=== PATIENT | male | born 1965 | race Caucasian/White ===

== ENCOUNTER 2017-04-24 11:11 | Emergency (ER) | payer MEDICAID ==
[~2017-04-24] VITALS: Ht 180.3 cm; Wt 68.0 kg
--- OUTSIDE RECORDS SUMMARY | 2017-04-24 11:28 | External Medical Summary Rpt | CCD ---
Author Author , NAVEEN HODGE Address Unknown Phone [email or web address] Purpose Continuity of Care Document - through 2016
--- OUTSIDE RECORDS SUMMARY | 2017-04-24 11:28 | External Medical Summary Rpt | CCD ---
Author Author , NAVEEN HODGE Address Unknown Phone [email or web address] Purpose Continuity of Care Document - through 2016
--- OUTSIDE RECORDS SUMMARY | 2017-04-24 11:29 | External Medical Summary Rpt | CCD ---
Author Author [employer] Organization [employer] Address Unknown Phone Unavailable Purpose Continuity of Care Document - through 2016
--- OUTSIDE RECORDS SUMMARY | 2017-04-24 11:29 | External Medical Summary Rpt | CCD ---
Demographics Preferred Language German Marital Status Unknown Jehovah'S Witness Affiliation Unknown Race Unknown Ethnic Group Unknown Author Author , NAVEEN HODGE Address Unknown Phone Immunization No patient found.
--- OUTSIDE RECORDS SUMMARY | 2017-04-24 11:29 | External Medical Summary Rpt | CCD ---
Demographics Preferred Language Bengali Marital Status Unknown Church Affiliation Unknown Race Unknown Ethnic Group Unknown Author Author , NAVEEN HODGE Address Unknown Phone Immunization No patient found.
--- OUTSIDE RECORDS SUMMARY | 2017-04-24 11:30 | External Medical Summary Rpt ---
Author Author NAVEEN Neves, [employer] Organization [employer] Address Unknown Phone Unavailable
[2017-04-24] MEDS ORDERED: ATENOLOL50 M1 PO (11:33)
[2017-04-24] MEDS ORDERED: AMLODIPINE BES10 MG PO (11:33)
--- NOTE | 2017-04-24 11:45 | Urgent Treatment Center Report ---
History of Present Issue Date/Time Seen by Provider 04/24/17 1125 Visit Reason Pt arrived:Walked Presenting Problem:PT C/O RIGHT SHOULDER PAIN THAT GOES DOWN INTO HIS ARM. ADVISES HE LIFTED ON A DRESSER A COUPLE OF DAYS AGO HAS PAIN SINCE THEN. PT ADVISES HIS MUSCLES FEEL TIGHT ALSO Location if Accident: Onset of symptoms date/time:/ or onset unknown for:MEDICAL HX UNKNOWN Have you (or family members/close friends) recently traveled outside the [place]? N If Yes, where/when: Have you had exposure to infectious disease within the past month? TB? Other? Specify: Came from triage for decision c/o pain right shoulder blade x 2 days causing a radiating burning/tingling feeling down right arm into all 4 fingers, not thumb. Helped move a heavy dresser 4 days ago and contributes the pain to that. Currently 03/27. "I was on the way to see my contracts officer when this flared again. i have to nail puller and lay over in my car to get relief so I came here". Describes the pain as "constant nagging toothache type pain" w/ intermittent sharp pain depending on positioning. "I can feel my muscles tight in that area". Trouble sleeping due to pain. Able to get comfortable only laying on right side with right arm abducted at 90 degrees. Pain worse when flat on back or laying on left side. Denies RUE weakness or limitations in ROM. Hx of arthritis. Typically improves with ibuprofen. Hasn't been taking anything for these symptoms. Reports he had run out of ibuprofen "some time ago". Per med rec, ibuprofen prescribed yesterday to Neel in [place]. Pt doesn't know who prescribed it. PCP Ngozi. He doesn't know her last name, whose office she is in or where she is located. States he hasn't seen or contacted anyone regarding this pain. Source patient Exam Limitations no limitations ALLERGIES Coded Allergies: No Known Allergies (04/24/17) Home Medications Reported Medications Amlodipine Besylate (Amlodipine Besylate) 10 MG PO DAILY #30 Atenolol 50 MG PO DAILY #30 History Medical History General CAD? No Angina: No [place]: No Hypertension? Yes Hyperlipidemia? No CHF? No DVT? No PE? No COPD? No Asthma? No Anemia? No GERD? No Gastric ulcers? No GI Bleed? No Hernia? No Thyroid Problems? No Hypothyroidism? No CVA? No Seizures? No Diabetes? No Renal Insuffiency? No UTI? No Stones? No BPH? No GB Disease: No Nephritic Syndrome? No Asplenia? No Hepatitis? No Sickle Cell Disease? No Arthritis? No Migraines? No Cataracts? No Glaucoma? No MRSA? No HIV? No TB? No Anxiety? No Depression? No Cancer? No Site: N More? No Immunization HX DT/Tetanus Unknown Surgical Hx Previous Surgery?N Social History Smoking Hx Smoker: Current Every Day Smoker Tobacco: Yes Type Cigarettes Packs/day 1 1/2 - 2 Packs Alcohol Alcohol: No Review of Systems All Other Systems Reviewed and Negative (as appropriate for CC) Musculoskeletal see HPI, denies joint pain, denies joint swelling, denies muscle stiffness, denies neck pain Skin denies change in color, denies lesions, denies lumps, denies rash Psychiatric/Neurological see HPI, denies headache Physical Exam Vital Signs Vital Signs Date Time Temp Pulse Resp B/P Pulse O2 O2 Flow FiO2 Ox Delivery Rate 04/24 1209 98.1 56 18 124/95 98 04/24 1142 18 04/24 1132 98.1 56 16 124/95 98 04/24 1115 98.1 56 16 124/95 98 General Appearance normal appearance, no apparent distress Neck normal inspection, non-tender, full range of motion (but pain right trap w/ flexion) Respiratory Status Yes: trachea midline, chest symmetrical, non tender chest. No: respiratory distress, use of accessory muscles, pain on inspiration, pain on expiration, productive cough, non productive cough. Lung Sounds anterior: lungs clear. posterior: lungs clear. bilateral: lungs clear. Cardiovascular regular rate/rhythm, no peripheral edema, no murmur Peripheral Pulses Pulses normal Yes (radial) Back normal inspection, no vertebral tenderness, localized TTP center right trapezius Extremities non-tender (from rt shoulder to fingers), normal range of motion (rt shoulder, elbow, wrist), normal inspection (right upper ext) Strength 5 Upper Ext (L), 5 Upper Ext (R) Neurologic alert, no motor/sensory deficits, oriented x 3 Skin intact, normal color, warm/dry Lymphatic no adenopathy Medical Decision Making LABS/Meds/Orders Pt receiving controlled substance in ED? No Results/Orders Current Medication Orders Sig/Lan Start time Last Medication Dose Route Stop Time Status Admin Ketorolac 60 MG ONCE ONE 04/24 1145 DC 04/24 Tromethamine IM 04/24 1146 1142 Ketorolac 0 .STK-MED ONE 04/24 1139 DC Tromethamine .ROUTE Progress [facility] Progress Notes 1 Date 04/24/17 Comment [facility] report ibuprofen called in yesterday by Linwood Jones NP. Called Linwood's primary care office. Pt hasn't been seen there since 2014 and at that time, by Ting MACIEL. Never seen by Linwood. no record of any interaction with pt there in that office but front window cashier staff advises Linwood also works other walk- in style clinics. Linwood off today. Sent text asking her to please call me if available. [facility] Progress Notes 2 Date 04/24/17 Time 1206 Comment Reporting pain resolved. No pain. "I still feel pulling or like tightness but no pain. that is gone now." Departure Departure Time of Disposition 1207 Disposition DC Home or Self Care(routine) Clinical Impression Primary Impression: Strain of right trapezius muscle Qualifiers: Encounter type: initial encounter Qualified Code: S46.811A - Strain of other muscles, fascia and tendons at shoulder and upper arm level, right arm, initial encounter Condition STABLE Referrals TING TITUS (Family) as needed for new, worsening or persistant symptoms. If not improving ocer the next 3-5 days, might need further evaluation and/or management Patient Instructions DI for Muscle Strain Additional Instructions * Ibuprofen every 6 hours with meal as needed for pain/inflammation. * Remember you had a toradol shot, similiar anti-inflammatory in clinic so wait 6-8 hours before taking ibuprofen * No additional anti-inflammatories like motrin, aleve, advil with the above amount of ibuprofen. You CAN still take Tylenol every 4 hours as needed if you need something more for pain. * Ice x15-20 mins 3-4 times a day for first 48 hours after the initial injury followed by moist heat x15-20 mins 3-4 times a day to affected area * Keep this area active. No movement leads to more stiffness. However, take it easy too and avoid heavy lifting, pushing, pulling. Discharge Counseling Counseled pt/family regarding diagnosis, medications/RX, home care, follow up needs at [phone]
--- NOTE | 2017-04-24 11:45 | Urgent Treatment Center Report ---
History of Present Issue Date/Time Seen by Provider 04/24/17 1125 Visit Reason Pt arrived:Walked Presenting Problem:PT C/O RIGHT SHOULDER PAIN THAT GOES DOWN INTO HIS ARM. ADVISES HE LIFTED ON A DRESSER A COUPLE OF DAYS AGO HAS PAIN SINCE THEN. PT ADVISES HIS MUSCLES FEEL TIGHT ALSO Location if Accident: Onset of symptoms date/time:/ or onset unknown for:MEDICAL HX UNKNOWN Have you (or family members/close friends) recently traveled outside the [place]? N If Yes, where/when: Have you had exposure to infectious disease within the past month? TB? Other? Specify: Came from triage for decision c/o pain right shoulder blade x 2 days causing a radiating burning/tingling feeling down right arm into all 4 fingers, not thumb. Helped move a heavy dresser 4 days ago and contributes the pain to that. Currently 03/27. "I was on the way to see my [place] [employer] police officer when this flared again. i have to dross puller and lay over in my car to get relief so I came here". Describes the pain as "constant nagging toothache type pain" w/ intermittent sharp pain depending on positioning. "I can feel my muscles tight in that area". Trouble sleeping due to pain. Able to get comfortable only laying on right side with right arm abducted at 90 degrees. Pain worse when flat on back or laying on left side. Denies RUE weakness or limitations in ROM. Hx of arthritis. Typically improves with ibuprofen. Hasn't been taking anything for these symptoms. Reports he had run out of ibuprofen "some time ago". Per med rec, ibuprofen prescribed yesterday to Neel in [place]. Pt doesn't know who prescribed it. PCP Ngozi. He doesn't know her last name, whose office she is in or where she is located. States he hasn't seen or contacted anyone regarding this pain. Source patient Exam Limitations no limitations ALLERGIES Coded Allergies: No Known Allergies (04/24/17) Home Medications Reported Medications Amlodipine Besylate (Amlodipine Besylate) 10 MG PO DAILY #30 Atenolol 50 MG PO DAILY #30 History Medical History General CAD? No Angina: No [place]: No Hypertension? Yes Hyperlipidemia? No CHF? No DVT? No PE? No COPD? No Asthma? No Anemia? No GERD? No Gastric ulcers? No GI Bleed? No Hernia? No Thyroid Problems? No Hypothyroidism? No CVA? No Seizures? No Diabetes? No Renal Insuffiency? No UTI? No Stones? No BPH? No GB Disease: No Nephritic Syndrome? No Asplenia? No Hepatitis? No Sickle Cell Disease? No Arthritis? No Migraines? No Cataracts? No Glaucoma? No MRSA? No HIV? No TB? No Anxiety? No Depression? No Cancer? No Site: N More? No Immunization HX DT/Tetanus Unknown Surgical Hx Previous Surgery?N Social History Smoking Hx Smoker: Current Every Day Smoker Tobacco: Yes Type Cigarettes Packs/day 1 1/2 - 2 Packs Alcohol Alcohol: No Review of Systems All Other Systems Reviewed and Negative (as appropriate for CC) Musculoskeletal see HPI, denies joint pain, denies joint swelling, denies muscle stiffness, denies neck pain Skin denies change in color, denies lesions, denies lumps, denies rash Psychiatric/Neurological see HPI, denies headache Physical Exam Vital Signs Vital Signs Date Time Temp Pulse Resp B/P Pulse O2 O2 Flow FiO2 Ox Delivery Rate 04/24 1209 98.1 56 18 124/95 98 04/24 1142 18 04/24 1132 98.1 56 16 124/95 98 04/24 1115 98.1 56 16 124/95 98 General Appearance normal appearance, no apparent distress Neck normal inspection, non-tender, full range of motion (but pain right trap w/ flexion) Respiratory Status Yes: trachea midline, chest symmetrical, non tender chest. No: respiratory distress, use of accessory muscles, pain on inspiration, pain on expiration, productive cough, non productive cough. Lung Sounds anterior: lungs clear. posterior: lungs clear. bilateral: lungs clear. Cardiovascular regular rate/rhythm, no peripheral edema, no murmur Peripheral Pulses Pulses normal Yes (radial) Back normal inspection, no vertebral tenderness, localized TTP center right trapezius Extremities non-tender (from rt shoulder to fingers), normal range of motion (rt shoulder, elbow, wrist), normal inspection (right upper ext) Strength 5 Upper Ext (L), 5 Upper Ext (R) Neurologic alert, no motor/sensory deficits, oriented x 3 Skin intact, normal color, warm/dry Lymphatic no adenopathy Medical Decision Making LABS/Meds/Orders Pt receiving controlled substance in ED? No Results/Orders Current Medication Orders Sig/Lan Start time Last Medication Dose Route Stop Time Status Admin Ketorolac 60 MG ONCE ONE 04/24 1145 DC 04/24 Tromethamine IM 04/24 1146 1142 Ketorolac 0 .STK-MED ONE 04/24 1139 DC Tromethamine .ROUTE Progress [facility] Progress Notes 1 Date 04/24/17 Comment [facility] report ibuprofen called in yesterday by Linwood Jones NP. Called Linwood's primary care office. Pt hasn't been seen there since 2014 and at that time, by Ting MACIEL. Never seen by Linwood. no record of any interaction with pt there in that office but front office help staff advises Linwood also works other walk- in style clinics. Linwood off today. Sent text asking her to please call me if available. [facility] Progress Notes 2 Date 04/24/17 Time 1206 Comment Reporting pain resolved. No pain. "I still feel pulling or like tightness but no pain. that is gone now." Departure Departure Time of Disposition 1207 Disposition DC Home or Self Care(routine) Clinical Impression Primary Impression: Strain of right trapezius muscle Qualifiers: Encounter type: initial encounter Qualified Code: S46.811A - Strain of other muscles, fascia and tendons at shoulder and upper arm level, right arm, initial encounter Condition STABLE Referrals TING TITUS (Family) as needed for new, worsening or persistant symptoms. If not improving ocer the next 3-5 days, might need further evaluation and/or management Patient Instructions DI for Muscle Strain Additional Instructions * Ibuprofen every 6 hours with meal as needed for pain/inflammation. * Remember you had a toradol shot, similiar anti-inflammatory in clinic so wait 6-8 hours before taking ibuprofen * No additional anti-inflammatories like motrin, aleve, advil with the above amount of ibuprofen. You CAN still take Tylenol every 4 hours as needed if you need something more for pain. * Ice x15-20 mins 3-4 times a day for first 48 hours after the initial injury followed by moist heat x15-20 mins 3-4 times a day to affected area * Keep this area active. No movement leads to more stiffness. However, take it easy too and avoid heavy lifting, pushing, pulling. Discharge Counseling Counseled pt/family regarding diagnosis, medications/RX, home care, follow up needs at [phone]
[2017-04-24 12:09] VITALS: BP 124/95
== END 2017-04-24 12:10 | disposition home or self-care (01) ==
LOC: ER 11:11 → UTC 11:11
DX: S46.811A Strain of other muscles, fascia and tendons at shoulder and upper arm level, right arm, initial encounter (principal)